=== PATIENT | female | born 1955 | race African-American/Black ===

== ENCOUNTER → 2017-04-13 | Outpatient (CLI) | payer OTHER ==
[~2017-04-13] MED LIST: BP MED; CEPH500C3 PO; LISI-363 PO
--- NOTE | 2017-04-13 16:50 | RADRPT ---
EXAM DATE/TIME: 04/13/2017 16:14 [facility] COMPARISON: No previous studies available for comparison. INDICATIONS : Lower back pain with no known injury. MEDICAL HISTORY : None. SURGICAL HISTORY : None. ENCOUNTER: Initial ACUITY: 1 week PAIN SCORE: 10/10 LOCATION: Bilateral lower back. FINDINGS: There are five non-rib bearing vertebral bodies. The vertebral bodies are in normal alignment withou t evidence of subluxation or scoliosis. There is disc space narrowing without significant osteophyte production at L4-L5 and L5-S1. The posterior elements are intact without evidence of spondylolysis. The pedicles are intact. Bony mineralization is normal. No fracture is identified. CONCLUSION: Mild L4-L5 and L5-S1 degenerative disc disease. Otherwise, unremarkable exam. Cruzito Jeronimo Jr., MD on April 13, 2017 at 16:46 Board Certified Radiologist. This report was verified electronically.
--- NOTE | 2017-04-13 16:51 | RADRPT ---
EXAM DATE/TIME: 04/13/2017 16:14 [facility] COMPARISON: No previous studies available for comparison. INDICATIONS : Left hip pain with no known injury. MEDICAL HISTORY : None. SURGICAL HISTORY : None. ENCOUNTER: Initial ACUITY: 1 week PAIN SCORE: 10/10 LOCATION: Left hip. FINDINGS: 2 views of the hip show mild joint space narrowing without significant osteophyte production. No femo ral head flattening or subchondral geode formation. Degenerative changes noted at the pubic symphysis . No fracture or dislocation. Soft tissues are unremarkable. CONCLUSION: Mild osteoarthritis. No acute abnormality. Cruzito Jeronimo Jr., MD on April 13, 2017 at 16:48 Board Certified Radiologist. This report was verified electronically.
== END ==
LOC: HRAD 15:04
DX: M25.552 Pain in left hip (principal)
CPT/HCPCS: 72110; 73502

== ENCOUNTER 2017-12-26 07:53 | Observation (INO) ==
[2017-12-26 07:56] VITALS: TEMP 98.1
[2017-12-26] MEDS ORDERED: Aspirin 325 MG Tablet PO ONE (08:11)
--- NOTE | 2017-12-26 08:17 | ED ---
HPI General Chief Complaint: Chest Pain Stated Complaint: Chest Pain Complaint Time Seen by Provider: 12/26/17 08:04 Source: patient Mode of arrival: ambulatory Limitations: no limitations History of Present Illness HPI narrative: 62-year-old female states she was here couple days ago for chest pain and they did all kinds of testing but her heart is still bothering her. She states she did not take an aspirin yet today. She denies any other concurrent complaints today. She states she did not stay in the hospital for her testing. She states she does not think she has had a stress test before. Quality is pressure like. Severity is moderate. She denies specific modifying factors but is a poor historian. complaint: Reports chest pain STEMI Alert: No Onset (ago): day(s) Duration: intermittent Pain location: Reports left chest Pain radiation: Reports none Relieving factors: nothing Exacerbating factors: nothing Treatments prior to arrival chest pain: Reports none Related Data Home Medications Medication Instructions Recorded Confirmed amlodipine 5 mg PO DAILY 10/04/17 12/26/17 lisinopril 40 mg PO DAILY 10/04/17 12/26/17 Previous Rx's Medication Instructions Recorded naproxen 250 mg PO BID #10 tab 11/07/17 ciprofloxacin HCl 500 mg PO BID 10 Days #20 tab 12/23/17 dicyclomine 20 mg PO TID PRN #20 tab 12/23/17 metronidazole [Flagyl] 500 mg PO Q8H 10 Days #30 tab 12/23/17 Allergies Allergy/AdvReac Type Severity Reaction Status Date / Time penicillin G Allergy Severe RASH Verified 10/04/17 11:04 Review of Systems ROS: all other systems reviewed are negative [facility] Medical History Medical History H/O: hysterectomy (Acute) HTN (hypertension) (Acute) Social History Social History Substance History: No History of Abuse Second Hand Smoke Exposure: No Smoking Status: Current every day smoker Tobacco Type: Cigarettes How Often Do You Have a Drink Containing Alcohol: Never Recent Travel in [place] within the Last 8 Weeks: No Recent Out of Country Travel within the Last 8 Weeks: No Immunization History Tetanus Immunization: Unsure Exam Narrative Exam Narrative: GENERAL: 62 y/o female in no apparent distress SKIN: Focused skin assessment warm/dry. HEAD: Atraumatic. Normocephalic. EYES: Pupils equal and round. No scleral icterus. No injection or drainage. ENT: No nasal bleeding or discharge. Mucous membranes pink and moist. NECK: Trachea midline. No JVD. CARDIOVASCULAR: Regular rate and rhythm. No murmur appreciated. RESPIRATORY: No accessory muscle use. Clear to auscultation. Breath sounds equal bilaterally. GASTROINTESTINAL: Abdomen soft, non-tender, nondistended. EXTREMITIES: No clubbing, cyanosis, or joint tenderness. No calf tenderness. NEUROLOGICAL: Awake and alert. Motor grossly within normal limits. Normal speech. Course Reevaluation(s) Reevaluation #1: Labs without emergent process, feeling better with nitroglycerin agrees to chest pain center observation Initial Documented Vital Signs Temperature 98.1 F 12/26/17 07:54 Pulse Rate 102 H 12/26/17 07:54 Respiratory Rate 20 12/26/17 07:54 Blood Pressure 170/94 H 12/26/17 07:54 Pulse Oximetry 90 L 12/26/17 07:54 Last Documented Vital Signs Temperature 98.1 F 12/26/17 07:54 Pulse Rate 79 12/26/17 09:00 Respiratory Rate 18 12/26/17 09:00 Blood Pressure 126/63 12/26/17 09:00 Pulse Oximetry 95 12/26/17 09:00 Medical Decision Making [facility] Narrative Medical decision making narrative: Will check blood work, chest x-ray, EKG and dose with aspirin and nitroglycerin and reevaluate Medical Screen Exam Complete: Yes Emergency Medical Condition: Yes Differential Diagnosis Differential Diagnosis: Musculoskeletal, gastritis, atypical cardiac Medical Records Medical records reviewed: Yes I reviewed the patient's medical records. Patient here recently for chest pain and abdominal pain with diagnosis of colitis Lab Data Lab results reviewed: Yes I reviewed the patient's lab results. Result diagrams: 12/26/17 08:20 12/26/17 08:20 Lab Results 12/26/17 12/26/17 12/26/17 Range/Units 08:20 08:20 08:20 WBC 10.3 (4.0-11.0) th/mm3 RBC 5.01 (4.00-5.30) mil/mm3 Hgb 13.7 (11.6-15.3) gm/dL Hct 41.7 (35.0-46.0) % MCV 83.2 (80.0-100.0) fL MCH 27.3 (27.0-34.0) pg MCHC 32.9 (32.0-36.0) % RDW 15.6 (11.6-17.2) % Plt Count 279 (150-450) th/mm3 MPV 9.8 (7.0-11.0) fL Neut % (Auto) 67.1 (16.0-70.0) % Lymph % (Auto) 20.4 (9.0-44.0) % [place] % (Auto) 8.2 H (0.0-8.0) % Eos % (Auto) 3.6 (0.0-4.0) % Baso % (Auto) 0.7 (0.0-2.0) % Neut # (Auto) 6.9 (1.8-7.7) th/mm3 Lymph # (Auto) 2.1 (1.0-4.8) th/mm3 [place] # (Auto) 0.8 (0.0-0.9) th/mm3 Eos # (Auto) 0.4 (0.0-0.4) th/mm3 Baso # (Auto) 0.1 (0.0-0.2) th/mm3 WBC Differential . Differential Comment Auto diff final PT 10.7 (9.8-11.6) sec INR 1.1 Ratio APTT 27.6 (24.3-30.1) sec Sodium 141 (136-145) meq/L Potassium 3.6 (3.5-5.1) meq/L Chloride 105 (98-107) meq/L Carbon Dioxide 28.8 (21.0-32.0) meq/L Anion Gap 7 (5-15) meq/L BUN 10 (7-18) mg/dL Creatinine 0.86 (0.50-1.00) mg/dL Estimated GFR 80 L (>89) mL/min Random Glucose 104 (74-106) mg/dL Calcium 8.9 (8.5-10.1) mg/dL Magnesium 1.9 (1.5-2.5) mg/dL Total Bilirubin 0.4 (0.2-1.0) mg/dL AST 22 (15-37) U/L ALT 20 (10-53) U/L Alkaline Phosphatase 97 (45-117) U/L Total Creatine Kinase 118 (26-192) U/L CK-MB (CK-2) 2.1 (0.5-3.6) ng/mL Troponin I 0.05 (0.02-0.05) ng/mL Total Protein 7.6 (6.4-8.2) g/dL Albumin 3.4 (3.4-5.0) g/dL Imaging Data Attestation: I personally reviewed and interpreted this imaging study as follows : Radiologist's impression: Chest X-Ray 12/26/17 08:04 CONCLUSION: 1. Minimal bibasilar atelectasis. Discharge Plan Discharge Disposition Patient Disposition: 30 Still Patient Discharge Details Diagnosis: Chest pain Physicians Team ED Provider: Yessi Mcintyre Primary Care Provider: UNKNOWN, Attending Provider: Yuan Cabrera Discharge Interventions Interventions: Vital Signs Last Done: 12/26/17 09:00 Status ED Status: Admitted Observation Patient
--- NOTE | 2017-12-26 08:44 | XR ---
EXAM DATE: 12/26/2017 8:04 AM EDT AGE/SEX: 62 years / Female INDICATIONS: Chest pain and short of breath today CLINICAL DATA: This is the patient's initial encounter. Patient reports that signs and symptoms have been present for 1 day and indicates a pain score of Nonresponsive. MEDICAL/SURGICAL HISTORY: None. Abdominal aortic aneurysm repair. [place] [facility] [place]. . FINDINGS: Minimal bibasilar airspace disease with mild elevation of the left hemidiaphragm. The cardiomediastin al contours are unremarkable. Osseous structures are intact. CONCLUSION: 1. Minimal bibasilar atelectasis. Electronically signed by: Gerry Malagon MD 12/26/2017 8:43 AM EDT
[2017-12-26 08:57] LABS: Baso # (Auto) 0.1 th/mm3 (0.0-0.2); Baso % (Auto) 0.7 % (0.0-2.0); Eos # (Auto) 0.4 th/mm3 (0.0-0.4); Eos % (Auto) 3.6 % (0.0-4.0); Hematocrit 41.7 % (35.0-46.0); Hemoglobin 13.7 gm/dL (11.6-15.3); Lymph # (Auto) 2.1 th/mm3 (1.0-4.8); Lymph % (Auto) 20.4 % (9.0-44.0); Mean Corpuscular HGB Conc 32.9 % (32.0-36.0); Mean Corpuscular Hemoglobin 27.3 pg (27.0-34.0); Mean Corpuscular Volume 83.2 fL (80.0-100.0); Mean Platelet Volume 9.8 fL (7.0-11.0); Mono # (Auto) 0.8 th/mm3 (0.0-0.9); Mono % (Auto) 8.2 % (0.0-8.0); Neut # (Auto) 6.9 th/mm3 (1.8-7.7); Neut % (Auto) 67.1 % (16.0-70.0); Platelet Count 279 th/mm3 (150-450); Red Blood Count 5.01 mil/mm3 (4.00-5.30); Red Cell Distribution Width 15.6 % (11.6-17.2); White Blood Count 10.3 th/mm3 (4.0-11.0)
[2017-12-26 09:13] VITALS: RESP 18
[2017-12-26 09:15] LABS: Activated Partial Thrombo Time 27.6 sec (24.3-30.1); INR 1.1 Ratio; Prothrombin Time 10.7 sec (9.8-11.6)
[2017-12-26 09:34] LABS: Alanine Aminotransferase 20 U/L (10-53); Albumin 3.4 g/dL (3.4-5.0); Alkaline Phosphatase 97 U/L (45-117); Anion Gap 7 meq/L (5-15); Aspartate Aminotransferase 22 U/L (15-37); Blood Urea Nitrogen 10 mg/dL (7-18); Calcium 8.9 mg/dL (8.5-10.1); Carbon Dioxide 28.8 meq/L (21.0-32.0); Chloride 105 meq/L (98-107); Creatine Kinase 118 U/L (26-192); Glomerular Filtration Rate 80 mL/min (>89); Glucose,Random 104 mg/dL (74-106); Magnesium 1.9 mg/dL (1.5-2.5); Potassium 3.6 meq/L (3.5-5.1); Sodium 141 meq/L (136-145); Total Protein 7.6 g/dL (6.4-8.2); Troponin I 0.05 ng/mL (0.02-0.05)
[2017-12-26 09:46] LABS: Creatine Kinase MB 2.1 ng/mL (0.5-3.6)
[2017-12-26] MEDS ORDERED: Iohexol 350 MG/ML 50 ML Vial (for Cath Lab) IVCONTRAST ONE (09:49)
[2017-12-26] MEDS ORDERED: ALPRAZolam 0.25 MG Tablet PO PRN (10:55)
[2017-12-26] MEDS ORDERED: Acetaminophen 500 MG Tablet PO PRN (10:57)
--- NOTE | 2017-12-26 11:20 | P.HPCA ---
History of Present Illness Primary Care Physician: UNKNOWN Chief Complaint: Chest pain History of Present Illness: This is a 62-year-old female that presents to ED with history of hypertension and past history of tobacco abuse to be evaluated for chest discomfort patient states she drove herself to the ED. She states that she was here on the 12th for chest and abdominal pain. She states she was told that her heart was okay but that she needed to take medicine for her abdomen. She has been taking Flagyl, Cipro, and dicyclomine. States abdominal pain has resolved. She had no other chest discomfort until this morning. She describes it as a heaviness in the left chest. It was an 8 out of 10 initially but worsened. Is still there now but has improved somewhat after getting nitroglycerin in the ED. Found nothing in particular to worsen his symptoms. Currently the pain is been there for about 6 hours. Denies associated shortness of breath, nausea, or diaphoresis. History of hypertension and past history of tobacco abuse. Recently diagnosed with colitis and placed on medication. States abdominal pain has resolved. Denies hyperlipidemia, diabetes, and known CAD. States that her mother had some kind of heart issues in past which she 82 but does not know the specifics of the heart issues. No other family members with cardiac issues. Patient quit smoking cigarettes 4 days ago but prior that she smoked on average 1/2 pack a series daily for 10 years. Denies alcohol or illicit drug use. - Diagnosis (1) Chest pain (2) HTN (hypertension) Review of Systems General: Patient denies fevers, chills, and recent travel. HEENT: Patient denies headache, sore throat, difficulty swallowing. Cardiovascular: Has the chest discomfort as mentioned above. Denies sensation of heart beating rapidly or irregularly. No syncope. Denies diaphoresis. Respiratory: Denies shortness of breath or inspirational chest discomfort. Denies coughing wheezing or hemoptysis. GI: Patient denies nausea, vomiting, diarrhea, abdominal pain, bloody stools. Musculoskeletal: Patient denies joint pain or edema. Denies calf pain or edema. Neurovascular: Patient denies numbness, tingling, weakness in extremities. Denies headache. Endocrine: Denies polyuria and polydipsia. Hematologic: Denies easy bruising. Skin: Denies rash or itching. PMFSH - History History Provided By: Patient - Medical History Medical History: Medical History (Last Reviewed 12/26/17 @ 08:18 by Yessi Mcintyre MD) H/O: hysterectomy (Acute) HTN (hypertension) (Acute) - Tobacco History Second Hand Smoke Exposure: No Tobacco Use In Past 30 Days: Yes Smoking Status: Current every day smoker Tobacco Type: Cigarettes - Alcohol History How Often Do You Have a Drink Containing Alcohol: Never - Substance Use History Substance History: No History of Abuse - Travel History Recent Travel in the [place] Within the Last 8 Weeks: No Recent Travel Out of the Country Within the Last 8 Weeks: No - Immunization History Tetanus Immunization: Unsure Medications and Allergies Active Medications: Active Medications Acetaminophen (Tylenol) 500 mg PO Q6H PRN PRN Reason: pain scale 1-5 Hydrocodone Bitart/Acetaminophen ([place] 7.5/325) 1 tab PO Q6H PRN PRN Reason: pain scale 6-10 Alprazolam (Xanax) 0.25 mg PO Q8H PRN PRN Reason: ANXIETY Amlodipine Besylate (Norvasc) 5 mg PO DAILY [facility] Aspirin (Aspirin) 325 mg PO DAILY [facility] Clonidine HCl (Catapres) 0.1 mg PO Q6H PRN PRN Reason: SBP >165 OR DBP > 110 Lisinopril (Prinivil) 40 mg PO DAILY [facility] Ondansetron HCl (Zofran Inj) 4 mg IV.PUSH Q6H PRN PRN Reason: NAUSEA Pantoprazole Sodium (Protonix) 40 mg PO DAILY [facility] Sodium Chloride (Ns Flush) 2 ml IV.FLUSH BID [facility] Sodium Chloride (Ns Flush) 2 ml IV.FLUSH PRN PRN PRN Reason: FLUSH AFTER USING IV ACCESS Allergies Allergy/AdvReac Type Severity Reaction Status Date / Time penicillin G Allergy Severe RASH Verified 10/04/17 11:04 Home Medications Medication Instructions Recorded Confirmed Type amlodipine 5 mg PO DAILY 10/04/17 12/26/17 History lisinopril 40 mg PO DAILY 10/04/17 12/26/17 History Exam Vital signs: Vital Signs 12/26/17 07:54 12/26/17 08:04 12/26/17 08:07 Temperature 98.1 F Pulse Rate 102 H 93 H Respiratory Rate 20 22 Blood Pressure 170/94 H 151/84 H Pulse Oximetry 90 L 95 100 12/26/17 09:00 Temperature Pulse Rate 79 Respiratory Rate 18 Blood Pressure 126/63 Pulse Oximetry 95 Intake & Output 12/25/17 12/26/17 12/26/17 18:59 06:59 18:59 Weight 78.018 kg Narrative: GENERAL: This is a well-nourished, well-developed patient, in no apparent distress. Patient speaks in clear complete sentences. Patient is pleasant. HEENT: Head is atraumatic and normocephalic. Neck is supple without lymphadenopathy and trachea is midline. No JVD or carotid bruits. CARDIOVASCULAR: Regular rate and rhythm without murmurs, gallops, or rubs. RESPIRATORY: Clear to auscultation. Breath sounds equal bilaterally. No wheezes , rales, or rhonchi. Chest wall is tender but is not the same discomfort that brought her into the hospital. No use of accessory muscles. GASTROINTESTINAL: Abdomen is nontender, nondistended. Abdomen soft. No obvious pulsatile mass or bruit. No CVA tenderness. Strong femoral pulses bilaterally. Normal bowel sounds in all quadrants. MUSCULOSKELETAL: Patient is moving upper and lower extremities freely. No calf tenderness or edema, no Homans sign. Strong pulses in upper and lower extremities. NEUROLOGICAL: Patient is alert and oriented. Cranial nerves 2-12 are grossly intact. No focal deficits and speech is clear. SKIN: No rash and turgor is normal. Results 12/26/17 08:20 12/26/17 08:20 Cardiac Enzymes 12/26/17 Range/Units 08:20 AST 22 (15-37) U/L CK-MB (CK-2) 2.1 (0.5-3.6) ng/mL Troponin I 0.05 (0.02-0.05) ng/mL Coagulation 12/26/17 Range/Units 08:20 PT 10.7 (9.8-11.6) sec APTT 27.6 (24.3-30.1) sec CBC 12/26/17 Range/Units 08:20 WBC 10.3 (4.0-11.0) th/mm3 RBC 5.01 (4.00-5.30) mil/mm3 Hgb 13.7 (11.6-15.3) gm/dL Hct 41.7 (35.0-46.0) % Plt Count 279 (150-450) th/mm3 Neut # (Auto) 6.9 (1.8-7.7) th/mm3 Lymph # (Auto) 2.1 (1.0-4.8) th/mm3 [place] # (Auto) 0.8 (0.0-0.9) th/mm3 Eos # (Auto) 0.4 (0.0-0.4) th/mm3 Baso # (Auto) 0.1 (0.0-0.2) th/mm3 Comprehensive Metabolic Panel 12/26/17 Range/Units 08:20 Sodium 141 (136-145) meq/L Potassium 3.6 (3.5-5.1) meq/L Chloride 105 (98-107) meq/L Carbon Dioxide 28.8 (21.0-32.0) meq/L BUN 10 (7-18) mg/dL Creatinine 0.86 (0.50-1.00) mg/dL Calcium 8.9 (8.5-10.1) mg/dL AST 22 (15-37) U/L ALT 20 (10-53) U/L Alkaline Phosphatase 97 (45-117) U/L Total Protein 7.6 (6.4-8.2) g/dL Albumin 3.4 (3.4-5.0) g/dL Intake and Output 12/25/17 12/26/17 12/26/17 22:59 06:59 14:59 Other: Weight 78.018 kg Patient Weight 12/27/17 06:59 Weight 78.018 kg - Imaging and Cardiology Imaging: Impressions Chest X-Ray 12/26/17 08:04 CONCLUSION: 1. Minimal bibasilar atelectasis. EKG interpretations - EKG EKG shows: sinus rhythm (Initial EKG is sinus rhythm without significant ST segment depressions or elevations) Caprini VTE Risk Assessment Caprini VTE Risk Assessment: Moderate/High Risk (score >= 2) Caprini Risk Assessment Model: Point Value = 1 Point Value = 2 Point Value = 3 Point Value = 5 Age 41-60 Minor surgery BMI > 25 kg/m2 Swollen legs Varicose veins or History of unexplained or recurrent spontaneous Oral contraceptives or hormone replacement Sepsis (< 1 month) Serious lung disease, including pneumonia (< 1 month) Abnormal pulmonary function Acute myocardial infarction Congestive heart failure (< 1 month) History of inflammatory bowel disease Medical patient at bed rest Age 61-74 Arthroscopic surgery Major open surgery (> 45 min) Laparoscopic surgery (> 45 min) Malignancy Confined to bed (> 72 hours) Immobilizing plaster cast Central venous access Age >= 75 History of VTE Family history of VTE Factor V Leiden Prothrombin [id number] Lupus anticoagulant Anticardiolipin antibodies Elevated serum homocysteine Heparin-induced thrombocytopenia Other congenital or acquired thrombophilia Stroke (< 1 month) Elective arthroplasty Hip, pelvis, or leg fracture Acute spinal cord injury (< 1 month) Prophylaxis Regimen: Total Risk Factor Score Risk Level Prophylaxis Regimen 0-1 Low Early ambulation 2 Moderate Order ONE of the following: *Sequential Compression Device (SCD) *Heparin 5000 units SQ BID 3-4 Higher Order ONE of the following medications: *Heparin 5000 units SQ TID *Enoxaparin/Lovenox 40 mg SQ daily (WT < 150 kg, CrCl > 30 mL/min) *Enoxaparin/Lovenox 30 mg SQ daily (WT < 150 kg, CrCl > 10-29 mL/min) *Enoxaparin/Lovenox 30 mg SQ BID (WT < 150 kg, CrCl > 30 mL/min) AND/OR *Sequential Compression Device (SCD) 5 or more Highest Order ONE of the following medications: *Heparin 5000 units SQ TID (Preferred with Epidurals) *Enoxaparin/Lovenox 40 mg SQ daily (WT < 150 kg, CrCl > 30 mL/min) *Enoxaparin/Lovenox 30 mg SQ daily (WT < 150 kg, CrCl > 10-29 mL/min) *Enoxaparin/Lovenox 30 mg SQ BID (WT < 150 kg, CrCl > 30 mL/min) AND *Sequential Compression Device (SCD) Assessment and Plan - Assessment (1) Chest pain Code(s): R07.9 - Chest pain, unspecified Status: Acute (2) HTN (hypertension) Code(s): I10 - Essential (primary) hypertension Status: Acute - Plan * Chest pain: Patient will continue to have serial cardiac enzymes and EKGs for ruling out purposes. She will be evaluated by Dr. Cabrera cardiology and chest pain center. Further plan pending laboratory studies, serial EKGs, and cardiology evaluation. * Hypertension: Resume her medications. Patient is stable at this time. She is agreeable to this plan. (1) Chest pain Qualifiers: Chest pain type: unspecified Qualified Code(s): R07.9 - Chest pain, unspecified
[2017-12-26] MEDS ORDERED: Lisinopril 20 MG Tablet PO SCH (11:30)
[2017-12-26] MEDS ORDERED: amLODIPine 5 MG Tablet PO SCH (11:30)
[2017-12-26 11:45] VITALS: BP 141/80; PULSE 77
[2017-12-26 12:09] LABS: Troponin I 0.14 ng/mL (0.02-0.05)
[2017-12-26] MEDS ORDERED: Heparin 10,000 UNITS/10 ML Vial (for IV use) IV.PUSH STA (13:25)
[2017-12-26] MEDS ORDERED: Heparin Drip 25,000 UNIT/250 ML BAG IV.CONT PRN (14:00)
--- NOTE | 2017-12-26 14:09 | P.CONCA ---
History of Present Illness Service: cardiology Consult date: 12/26/17 Requesting Physician: Chris Natarajan Reason for Consult: NSTEMI Primary Care Provider: UNKNOWN Chief Complaint: Chest pain History of Present Illness: This is a 62-year-old -[place] female with a history of hypertension, active tobacco use, family history of CAD who presents earlier this morning to [facility] ER with complaint of left-sided chest pain. She describes her chest pain as left anterior chest wall, somewhat reproducible to palpation, at rest and nonexertional, nonpleuritic, non-positional. She states that it occurred around 4 AM and has been continuous but somewhat improved in intensity since treatment in the ER. Initial cardiac enzymes show troponin elevated 0.14. Remainder of laboratories are normal. EKG is sinus rhythm with no acute ST-T wave abnormality. Of note, she presented last to the ER with complaint of GI discomfort including nausea and diarrhea. Those symptoms have passed and she did have chest pain at that time as well. Chest pain at that time was similar in nature and resolved but recurred this morning as noted above. Patient was evaluated in the chest pain center and consultation to cardiology was placed once troponin was found to be elevated. [facility] - History History Provided By: Patient - Medical History Medical History: Medical History (Last Reviewed 12/26/17 @ 08:18 by Yessi Mcintyre MD) H/O: hysterectomy (Acute) HTN (hypertension) (Acute) - Tobacco History Second Hand Smoke Exposure: No Tobacco Use In Past 30 Days: Yes Smoking Status: Former smoker Tobacco Type: Cigarettes - Alcohol History How Often Do You Have a Drink Containing Alcohol: Never - Substance Use History Substance History: No History of Abuse - Travel History Recent Travel in the [place] Within the Last 8 Weeks: No Recent Travel Out of the Country Within the Last 8 Weeks: No - Immunization History Tetanus Immunization: Unsure Medications and Allergies Active Medications: Active Medications Acetaminophen (Tylenol) 500 mg PO Q6H PRN PRN Reason: pain scale 1-5 Hydrocodone Bitart/Acetaminophen (Agra 7.5/325) 1 tab PO Q6H PRN PRN Reason: pain scale 6-10 Alprazolam (Xanax) 0.25 mg PO Q8H PRN PRN Reason: ANXIETY Amlodipine Besylate (Norvasc) 5 mg PO DAILY [facility] Last Admin: 12/26/17 13:01 Dose: 5 mg Aspirin (Aspirin) 325 mg PO DAILY [facility] Clonidine HCl (Catapres) 0.1 mg PO Q6H PRN PRN Reason: SBP >165 OR DBP > 110 Heparin Sodium (Porcine) (Heparin Inj) 2,500 units IV.PUSH UNSCH PRN PRN Reason: aPTT 25-39 Heparin Sodium (Porcine) (Heparin Inj) 5,000 units IV.PUSH UNSCH PRN PRN Reason: aPTT < 25 Heparin Sodium/Dextrose (Heparin/D5w 25,000 U/250 Ml) 25,000 unit in 250 mls @ 9 mls/hr IV.CONT TITRATE PRN; Protocol PRN Reason: Per Protocol Lisinopril (Prinivil) 40 mg PO DAILY [facility] Last Admin: 12/26/17 13:00 Dose: 40 mg Nitroglycerin (Nitro-Bid 2% Oint) 0.5 inch TOPICAL Q6HR [facility] Last Admin: 12/26/17 13:01 Dose: 0.5 inch Ondansetron HCl (Zofran Inj) 4 mg IV.PUSH Q6H PRN PRN Reason: NAUSEA Pantoprazole Sodium (Protonix) 40 mg PO DAILY [facility] Last Admin: 12/26/17 13:00 Dose: 40 mg Sodium Chloride (Ns Flush) 2 ml IV.FLUSH BID [facility] Sodium Chloride (Ns Flush) 2 ml IV.FLUSH PRN PRN PRN Reason: FLUSH AFTER USING IV ACCESS Allergies Allergy/AdvReac Type Severity Reaction Status Date / Time penicillin G Allergy Severe RASH Verified 10/04/17 11:04 Home Medications Medication Instructions Recorded Confirmed Type amlodipine 5 mg PO DAILY 10/04/17 12/26/17 History lisinopril 40 mg PO DAILY 10/04/17 12/26/17 History Exam Vital signs: Vital Signs 12/26/17 07:54 12/26/17 08:04 12/26/17 08:07 Temperature 98.1 F Pulse Rate 102 H 93 H Respiratory Rate 20 22 Blood Pressure 170/94 H 151/84 H Pulse Oximetry 90 L 95 100 12/26/17 09:00 12/26/17 12:00 Temperature Pulse Rate 77 77 Respiratory Rate 18 18 Blood Pressure 141/80 H 141/80 H Pulse Oximetry 93 L 93 L Intake & Output 12/25/17 12/26/17 12/26/17 18:59 06:59 18:59 Weight 78.018 kg Other: Weight On Admission 78.018 kg Results 12/26/17 08:20 12/26/17 08:20 Cardiac Enzymes 12/26/17 12/26/17 Range/Units 08:20 11:38 AST 22 (15-37) U/L CK-MB (CK-2) 2.1 (0.5-3.6) ng/mL Troponin I 0.05 0.14 H (0.02-0.05) ng/mL Coagulation 12/26/17 Range/Units 08:20 PT 10.7 (9.8-11.6) sec APTT 27.6 (24.3-30.1) sec CBC 12/26/17 Range/Units 08:20 WBC 10.3 (4.0-11.0) th/mm3 RBC 5.01 (4.00-5.30) mil/mm3 Hgb 13.7 (11.6-15.3) gm/dL Hct 41.7 (35.0-46.0) % Plt Count 279 (150-450) th/mm3 Neut # (Auto) 6.9 (1.8-7.7) th/mm3 Lymph # (Auto) 2.1 (1.0-4.8) th/mm3 [place] # (Auto) 0.8 (0.0-0.9) th/mm3 Eos # (Auto) 0.4 (0.0-0.4) th/mm3 Baso # (Auto) 0.1 (0.0-0.2) th/mm3 Comprehensive Metabolic Panel 12/26/17 Range/Units 08:20 Sodium 141 (136-145) meq/L Potassium 3.6 (3.5-5.1) meq/L Chloride 105 (98-107) meq/L Carbon Dioxide 28.8 (21.0-32.0) meq/L BUN 10 (7-18) mg/dL Creatinine 0.86 (0.50-1.00) mg/dL Calcium 8.9 (8.5-10.1) mg/dL AST 22 (15-37) U/L ALT 20 (10-53) U/L Alkaline Phosphatase 97 (45-117) U/L Total Protein 7.6 (6.4-8.2) g/dL Albumin 3.4 (3.4-5.0) g/dL Intake and Output 12/25/17 12/26/17 12/26/17 22:59 06:59 14:59 Other: Weight 78.018 kg Weight On Admission 78.018 kg Patient Weight 12/27/17 06:59 Weight 78.018 kg - Imaging and Cardiology Imaging: Impressions Chest X-Ray 12/26/17 08:04 CONCLUSION: 1. Minimal bibasilar atelectasis. Assessment and Plan - Plan Assessment and plan Patient is a 62-year-old lady with cardiovascular risk factors including age, family history, hypertension, and active tobacco use who presents with atypical chest pain and initial cardiac biomarkers elevated consistent with suspected NSTEMI. #1. NSTEMI-patient was notified of elevated troponin and due to her underlying risk factors suspected obstructive CAD as cause for anginal symptoms. The risks benefits and alternatives of undergoing coronary angiography were discussed with the patient at length who wishes to proceed. Case was discussed with Dr. Cedrick Spann who will proceed with coronary angiography later today. She has no contraindication to DAPT which would be continued for 1 year uninterrupted if PCI is required. Will start statin therapy if found to have coronary atherosclerosis. #2. Hypertension -continue home lisinopril and amlodipine. Start metoprolol tartrate 25 mg twice daily and chlorthalidone 25 mg every morning. #3. Tobacco use- smoking cessation was strongly recommended
[2017-12-26] MEDS ORDERED: Metoprolol Tartrate 25 MG Tablet PO SCH (14:15)
--- NOTE | 2017-12-26 14:20 | ECG ---
Date Performed: 12/26/2017 Time Performed: 08:01:03 PTAGE: 62 years EKG: Sinus rhythm POSSIBLE LEFT ATRIAL ENLARGEMENT BORDERLINE ECG PREVIOUS TRACING : 12/22/2017 23.42 Compared to previous tracing,T wave changes have improved. DOCTOR: Yuan Cabrera Interpretating Date/Time 12/26/2017 14:18:29
--- NOTE | 2017-12-26 14:26 | ECG ---
Date Performed: 12/26/2017 Time Performed: 12:06:11 PTAGE: 62 years EKG: Sinus rhythm NORMAL ECG PREVIOUS TRACING : 12/26/2017 12.00 Since previous tracing, no significant change noted DOCTOR: Yuan Cabrera Interpretating Date/Time 12/26/2017 14:25:06
[2017-12-26] MEDS ORDERED: Heparin 10,000 UNITS/10 ML Vial (for IV use) ONE (14:50)
[2017-12-26] MEDS ORDERED: Heparin/NS PF Inj 1,000 ML ONE (14:50)
[2017-12-26] MEDS ORDERED: fentaNYL Citrate Inj 100 MCG/2 ML Ampul ONE (15:24)
--- NOTE | 2017-12-26 15:35 | P.PCN ---
Date of procedure: 12/26/17 Pre-op diagnosis: Unstable angina Procedure: Procedure performed: 1. Coronary angiography 2. fluoroscopy with interpretation Methods: Risks, benefits, and alternatives were discussed with the patient. Patient understood consented to the procedure. Patient was brought into the cardiac catheterization lab placed on the catheterization table. Right wrist was prepped and draped in a sterile fashion. Right wrist was anesthetized with 2% lidocaine. Right radial artery was cannulated and a 6 Icelandic 7 cm sheath was placed without difficulty. 200 mcg of intra-arterial nitroglycerin in addition to 3000 units of intravenous heparin was administered. Coronary angiography: 1. Left main is a very large caliber size vessel angiographically normal 2. Left anterior descending coronary is very large caliber size vessel and tortuous. The left anterior descending and diagonal branches widely patent with only minimal luminal irregularities. 3. Left circumflex does have 30% stenosis proximally gives rise to an obtuse marginal branch. 4. Right coronary is dominant vessel giving rise to the posterior descending branch. Right coronary is widely patent. Conclusions: 1. Mild nonobstructive coronary disease Plan: Patient be monitored closely for any postprocedural complications. Patient symptoms do not appear to be fixed obstructive coronary disease. Prinzmetal's angina may be a consideration. We will continue with guideline directed medical therapy. Anticipate discharge.
--- NOTE | 2017-12-26 15:38 | CATHPROC ---
[facility] HIS Report Study Information Study Number Admission Scheduled Start Study Start [id number] Dec 26 2017 9:48AM 12/26/2017 Dec 26 2017 2:43PM [place] Service Cardiac Catheterization Admit Source Facility Department Emergency department [facility] - Slot Floor Supervisor Physician and Clinical Staff Initial Cedrick Mckeon User Interface Engineer Samir Gomez RN Recorder Barbra Ring,RT(R) (BS) Scrub Vargas Alfred,RT(R) Procedures Performed Procedure Location (Site) Vessel Name Coronary Angiograms LCA Left Coronary Coronary Angiograms RCA Right Coronary Wire insertion Radial (right) Radial Art. Equipment Time Railroad Purchasing Agent Description Size Mfg Part Number Used/Scraped TRANSDUCER, TRUWAVE [id number] 14:59 Celsense RAVI * Used W/STOCKCOCK *[id number] *[id number] *[id number] 14:59 Attune Live BLANKET,WARM AIR CCL * Used *[id number] 14:59 Attune Live PACK, CCL CUSTOM * Used *[id number] 14:59 Attune Live SUPPORT, ARTERIAL ADULT [id number] *[id number] Used BAND, RADIAL COMPRESSION TR [id number] 15:31 payworks 24CM Used SHORT 24 *[id number] SHEATH, FR6 RADIAL PRELUDE 14:59 payworks FR 6 [id number] Used EASE 11CM [id number] 14:59 payworks WIRE, EXCHANGE 260CM 3MMJ 260CM Used *[id number] 14:59 NAMIC MANIFOLD, 4 PORT * Used *[id number] 14:59 NYCOMED OMNIPAQUE, 350 MG, 150ML 150ML [id number] Used History: Current Medications Medication Dosage/Unit Route Frequency Last Date/Time Taken NTG Patch History: Allergies Allergy Reaction penicillin G RASH History: Risk Factors Family History of Hypertension Dyslipidemia Previous NC Previous Heart Failure Premature CAD Yes No No No No Prior Valve Prior PCI Prior CABG Surgery No No No Cerebrovascular Peripheral Artery Chronic Lung On Dialysis Diabetes Disease Disease Disease No No No No No History: Symptoms/Diagnosis Selection Items Chest pain History: Stress Tests Stress or Imaging Studies Performed Yes Standard Exercise Stress Test No Stress Echo No Stress Test SPECT Stress Test SPECT Result Yes Positive Stress Test CMR No Cardiac CTA Coronary Calcium Score No No History: Other Current Smoker Method Packs a Day Years Used Pack Years Yes Cigarettes 1 10 10 Labs Hgb (g/dl) Hct (%) WBC (l/cumm) Platelets (thousands) 11.60-17.00 35.00-51.00 4.00-11.00 150.00-450.00 13.7 41.7 10.3 279 Glucose (mg/dl) BUN (mg/dl) Creatinine (mg/dl) BUN:Creatinine (1:x) 74.00-106.00 7.00-18.00 0.50-1.30 10.00-20.00 104 10 0.8 12.5 Na (meq/l) K (meq/l) 136.00-145.00 3.50-5.10 141 3.6 INR (PTT:PT) 0.90-1.10 1.1 Troponin I (ng/ml) CPK-MB (ng/ML) 0.02-0.05 0.50-3.60 0.14 Not Drawn Medication Medication Total Dose (Bolus/Oral) Medication Total Dosage/Unit 1% XYLOCAINE 20 mL FENTANYL 25 mcg HEPARIN 3000 units RADIAL COCKTAIL 5 mL (Bolus) Medications (Bolus/Oral) Medication Time Given Dosage/Unit Administered By Reason 1% XYLOCAINE 12/26/2017 3:20:25 PM 20 mL Cedrick Gresham 20 mL 1% XYLOCAINE given in lab by Cedrick Gresham in Right Radial via Subcutaneous. RADIAL COCKTAIL 12/26/2017 3:21:55 PM 5 mL (Bolus) Cedrick Gresham 5 mL (Bolus) RADIAL COCKTAIL given in lab by Cedrick Gresham via Radial. Using [Solution Name]. 200 mg nitro HEPARIN 12/26/2017 3:23:31 PM 3000 units Samir Gomez 3000 units HEPARIN given in lab by Samir Gomez RN in Right Antecubital via Peripheral IV. FENTANYL 12/26/2017 3:25:56 PM 25 mcg Samir Gomez 25 mcg FENTANYL given in lab by Samir Gomez RN via Peripheral IV. Medication (Drip) Medication Time Given Dosage/Unit Concentration/Unit Diluent (ml) Solution IV Solutions 12/26/2017 2:48:03 PM 0 mL (IV) 500 NaCl .9 Patient arrived on IV Solutions via Peripheral IV. Pump/Drip Flow = 30 ml/hr using NaCl .9. Initial Case Assessment Cardiovascular HR Rhythm NIBP Chest Pain 87 reg 147/86 0 Edema Present Skin color Skin None Normal Warm Dry Circulatory - Right Pulses Dorsalis Pedis Femoral Radial 1 1 1 Scale (0,1,2,3,4,d) Scale (0,1,2,3,4,d) Circulatory - Lower Extremities Color Lower Right Color Lower Left Normal Normal Neurological State Oriented to time-place- Alert Moves all extremities person Respiration - General Respiration Rate SpO2 (%) (B/min) 13 93 Chronological Log Time Study Chronological Log 14:47:17 Patient arrived via Bed. 14:47:18 Patient Name, D.O.B, / Armband Verified By R.N. 14:47:19 Consent signed by the physician and the patient and verified by the Slot Floor Supervisor staff. 14:47:21 Pre-op and post- op instructions given; patient acknowledges understanding of instructions. 14:47:26 Presedation assessment performed by Slot Floor Supervisor RN. 14:47:28 Allens test performed on the right radial and ulnar artery. 14:47:32 Patient has been NPO for Less than 6Hrs. MD aware. 14:47:59 Skin Breakdown- none noted or reported 14:48:01 Patient Warmer Placed on the Table. 14:48:02 [place] Prominences Protected 14:48:03 A # 20 IV was noted in the Antecubital (right). Grade = 0 14:48:03 Patient arrived on IV Solutions via Peripheral IV. Pump/Drip Flow = 30 ml/hr using NaCl .9. 14:48:06 History and physical on the chart or being dictated. Assessment: Initial Case, HR=87 BPM, Rhythm=reg, KJEN=217/86 mmhg, Chest Pain=0, Edema=None, Co christiano=Normal, Skin = Warm, Dry Right Pulses: Dereje Ped=1, Femoral=1, Radial=1 14:48:08 Lower Right Extremities: Color=Normal Lower Left Extremities: Color=Normal Neurological: State=Alert, Ox3, PENA Respiration: Resp=13 B/min, SpO2=93 % Vitals capture started with the following parameters, Patient=Adult, Interval=5 min, Initial Pr zkwkwd=549 mmHg, 14:57:58 Deflation Rate=5 mmHg, Cuff placed on Left Arm 14:59:11 HR=87 bpm, IJMI=697/86 mmhg, SpO2=89.0 %, Resp=3 B/min, Pain=0, Jhonathan=10, Weaver=2 14:59:39 Reference ECG taken 15:03:43 HR=85 bpm, JOMK=861/83 mmhg, SpO2=88.0 %, Resp=29 B/min, Pain=0, Jhonathan=10, Weaver=2 15:05:50 Right Radial and groin(s) prepped with 2% chlorhexidine, and draped after a 3 min. waiting time. 15:08:38 HR=81 bpm, SNSO=370/90 mmhg, SpO2=90.0 %, Resp=21 B/min, Pain=0, Jhonathan=10, Weaver=2 15:10:06 MD paged 15:10:32 MD responded 15:11:00 Pressure channel 1 zeroed. 15:11:32 Pressure channel 1 zeroed. 15:13:43 HR=84 bpm, UDBV=283/94 mmhg, SpO2=90.0 %, Resp=19 B/min, Pain=0, Jhonathan=10, Weaver=2 Time Out. Correct patient, correct procedure, correct physician, labs, allergies, and equipment verified with solar lab technician 15:17:12 team present. Fire risk assesment completed (see hard stop sheet for coding). Time Out Conc urred by MD and individual staff in procedure. 15:19:19 Case Start 15:19:31 Verbal Stimulation=2 Physical Stimulation=2 Airway=2 Respiration=2 TOTAL=8. (0=absent, 1=li mited, 2=present) 15:19:32 HR=80 bpm, HNXI=266/82 mmhg, SpO2=92.0 %, Resp=20 B/min, Pain=0, Jhonathan=10, Weaver=2 15:20:25 20 mL 1% XYLOCAINE given in lab by Cedrick Gresham in Right Radial via Subcutaneous. 15:21:27 Access site was Right Radial Artery . 15:21:33 A wire was inserted via Radial (right). A SHEATH, FR6 RADIAL PRELUDE EASE 11CM FR 6 was advanced into the Radial (right) using the Perc utaneous 15:21:47 technique. 15:21:55 5 mL (Bolus) RADIAL COCKTAIL given in lab by Cedrick Gresham via Radial. Using [Solution Nam e]. 200 mg nitro 15:: sheath sutured by dr gresham 15:23:31 3000 units HEPARIN given in lab by Samir Gomez, RN in Right Antecubital via Peripheral IV . A JR 5.0 INFINITI CATHETER FR 5 was advanced over a wire. OMNIPAQUE, 350 MG, 150ML 150ML was us ed for 15:23:36 injections. 15:23:41 HR=77 bpm, ZUMU=169/82 mmhg, SpO2=93.0 %, Resp=18 B/min, Pain=0, Jhonathan=10, Weaver=2 15:24:48 The RCA was injected and visualized at various angles. OMNIPAQUE, 350 MG, 150ML 150ML used . After removing the current catheter a JL 3.5 INFINITI CATHETER FR 5 was advanced over a WIRE, E XCHANGE 260CM 15:25:13 3MMJ 260CM. 15:25:56 25 mcg FENTANYL given in lab by Samir Gomez, RN via Peripheral IV. Recorded Pressure: Ao, HR=82, Condition=Condition 1 15:26:38 (Aorta) Ao 135/82/106 15:26:55 The LCA was injected and visualized at various angles. OMNIPAQUE, 350 MG, 150ML 150ML used . 15:27:28 A WIRE, EXCHANGE 260CM 3MMJ 260CM was inserted via Radial (right). 15:27:34 Catheter was removed 15:27:35 Wire removed 15:27:40 Case End (Physician broke scrub) 15:28:45 HR=86 bpm, ERNF=167/81 mmhg, SpO2=90.0 %, Resp=18 B/min, Pain=0, Jhonathan=10, Weaver=2 15:29:49 Catheter(s) removed without difficulty Radial Compression Device Used. 16 mLs of air placed in BAND, RADIAL COMPRESSION TR SHORT 24 24 CM. Affected 15:30:23 hand 96 % O2 saturation. 15:30:51 No case complications noted. 15:30:54 Bedside Report will be given. 15:33:46 HR=81 bpm, FCER=800/87 mmhg, SpO2=92.0 %, Resp=20 B/min, Pain=0, Jhonathan=10, Weaver=2 15:37:04 Patient moved to stretcher 15:38:07 Vitals capture stopped. End Study - Contrast Media Used In Study Contrast Total Opened (mL) Total Used (mL) Total Wasted (mL) Omnipaque 30 30 0 End Study - Maximum Contrast Load Max Contrast Load (mL) 487.5 End Study - Radiation Exposure Fluoro Time (minutes) 0.9 End Study - Sheaths Sheaths Pulled By Sheath Hold Time (min) Vargas Alfred End Study - Patient Disposition Complications Transferred To Interventional Outcome No Slot Floor Supervisor Holding No attempt made
--- NOTE | 2017-12-26 16:12 | P.DS ---
Date of admission: 12/26/17 09:48 Primary care physician: UNKNOWN Attending physician on discharge: Fely Russell Anticipated date of discharge: 12/26/17 Brief History from admission: This is a 62-year-old female that presents to ED with history of hypertension and past history of tobacco abuse to be evaluated for chest discomfort patient states she drove herself to the ED. She states that she was here on the 12th for chest and abdominal pain. She states she was told that her heart was okay but that she needed to take medicine for her abdomen. She has been taking Flagyl, Cipro, and dicyclomine. States abdominal pain has resolved. She had no other chest discomfort until this morning. She describes it as a heaviness in the left chest. It was an 8 out of 10 initially but worsened. Is still there now but has improved somewhat after getting nitroglycerin in the ED. Found nothing in particular to worsen his symptoms. Currently the pain is been there for about 6 hours. Denies associated shortness of breath, nausea, or diaphoresis. History of hypertension and past history of tobacco abuse. Recently diagnosed with colitis and placed on medication. States abdominal pain has resolved. Denies hyperlipidemia, diabetes, and known CAD. States that her mother had some kind of heart issues in past which she 82 but does not know the specifics of the heart issues. No other family members with cardiac issues. Patient quit smoking cigarettes 4 days ago but prior that she smoked on average 1/2 pack a series daily for 10 years. Denies alcohol or illicit drug use. Patient update on day of discharge: Patient seen lying quietly in bed. She tells me that her chest pain has gotten significantly better. It is difficult to get her to exactly qualify her pain- description is highly varied. She tells me the pain has resolved with nitro. Also tells me that she is no longer having significant abdominal pain and no diarrhea or vomiting. Her main concern is that she is hungry. DS: Diagnosis - Discharge Diagnosis (1) Elevated troponin Status: Acute (2) Chest pain Status: Acute DS: Summary Hospital Course: 62-year-old -[place] female admitted for chest pain. Was recently seen for a complaint of abdominal and chest pain-workup at that time including echo was not significant. Labs at this admit indicated elevated troponin so patient was consented and taken to [facility]. No findings on cath. Patient released feeling well with no further complaints of chest pain. - Time Spent with Patient Total time spent providing and/or coordinating discharge services: Less than 30 minutes - Quality: VTE Deep Vein Thrombosis/Pulmonary Embolism Present on Admission: No Exam Vital signs: Vital Signs 12/26/17 07:54 12/26/17 08:04 12/26/17 08:07 Temperature 98.1 F Pulse Rate 102 H 93 H Respiratory Rate 20 22 Blood Pressure 170/94 H 151/84 H Pulse Oximetry 90 L 95 100 12/26/17 09:00 12/26/17 12:00 Temperature Pulse Rate 77 77 Respiratory Rate 18 18 Blood Pressure 141/80 H 141/80 H Pulse Oximetry 93 L 93 L Intake & Output 12/25/17 12/26/17 12/26/17 18:59 06:59 18:59 Weight 78.018 kg Other: Weight On Admission 78.018 kg Narrative: GENERAL: Well-nourished, well-developed adult female in no obvious distress. SKIN: Warm and dry. HEAD: Atraumatic. Normocephalic. CARDIOVASCULAR: Regular rate and rhythm. RESPIRATORY: No accessory muscle use. Clear to auscultation. Breath sounds equal bilaterally. GASTROINTESTINAL: Abdomen soft, non-tender, non-distended. Positive bowel sounds. MUSCULOSKELETAL: Extremities without clubbing, cyanosis, or edema. No obvious deformities. NEUROLOGICAL: Awake and alert. No obvious cranial nerve deficits. Motor grossly within normal limits. Normal speech. Results Procedures completed during hospitalization: heart cath 12/26/17 Labs on day of discharge: Labs from last 24 hours 12/26/17 12/26/17 12/26/17 11:38 08:20 08:20 WBC RBC Hgb Hct MCV MCH MCHC RDW Plt Count MPV Neut % (Auto) Lymph % (Auto) [place] % (Auto) Eos % (Auto) Baso % (Auto) Neut # (Auto) Lymph # (Auto) [place] # (Auto) Eos # (Auto) Baso # (Auto) WBC Differential Differential Comment PT 10.7 INR 1.1 APTT 27.6 Sodium 141 Potassium 3.6 Chloride 105 Carbon Dioxide 28.8 Anion Gap 7 BUN 10 Creatinine 0.86 Estimated GFR 80 L Random Glucose 104 Calcium 8.9 Magnesium 1.9 Total Bilirubin 0.4 AST 22 ALT 20 Alkaline Phosphatase 97 Total Creatine Kinase 91 118 CK-MB (CK-2) 2.1 Troponin I 0.14 H 0.05 Total Protein 7.6 Albumin 3.4 12/26/17 08:20 WBC 10.3 RBC 5.01 Hgb 13.7 Hct 41.7 MCV 83.2 MCH 27.3 MCHC 32.9 RDW 15.6 Plt Count 279 MPV 9.8 Neut % (Auto) 67.1 Lymph % (Auto) 20.4 [place] % (Auto) 8.2 H Eos % (Auto) 3.6 Baso % (Auto) 0.7 Neut # (Auto) 6.9 Lymph # (Auto) 2.1 [place] # (Auto) 0.8 Eos # (Auto) 0.4 Baso # (Auto) 0.1 WBC Differential . Differential Comment Auto diff final PT INR APTT Sodium Potassium Chloride Carbon Dioxide Anion Gap BUN Creatinine Estimated GFR Random Glucose Calcium Magnesium Total Bilirubin AST ALT Alkaline Phosphatase Total Creatine Kinase CK-MB (CK-2) Troponin I Total Protein Albumin - Impressions ITS Impressions Chest X-Ray 12/26/17 08:04 CONCLUSION: 1. Minimal bibasilar atelectasis. Discharge Plan - Discharge Disposition Patient Disposition: Discharge Home - Discharge Condition Condition: Stable - Discharge Order Discharge Orders: Discharge Order (Routine); Ordered 12/26/17 Ordered By: Amirah Mariee Cardiology Clear for Discharge (Routine); Ordered 12/26/17 Ordered By: Cedrick Spann - Physicians Team Primary Care Provider: UNKNOWN, Attending Provider: Fely Russell Other Providers: Demarco Travis DO
[2017-12-26 16:40] VITALS: O2SAT 91
[2017-12-26] MEDS ORDERED: Heparin 10,000 UNITS/10 ML Vial (for IV use) IV.PUSH PRN ×2 (19:21)
[2017-12-27] MEDS ORDERED: Aspirin 325 MG Tablet PO SCH (09:00)
== END 2017-12-26 18:32 | disposition home or self-care (01) ==
LOC: NEPC 07:53 → NEDA 07:53 → NEPGCP 10:14 → HCIS 15:14
PROVIDERS: ADMIT Hospitalist; ATTEND Family Medicine